=== PATIENT | female | born 1940 ===

== ENCOUNTER 2017-10-24 07:53 | Outpatient (CLI) | payer OTHER ==
[~2017-10-24 07:53] MED LIST: AVALIDE 300-251 TAB; CARDURA1 MG; CEFTIN250 MG PO; GLUCOPHAGE XR500 MG PO; LOPRESSOR HCT 11 TAB PO; NABUMETONE500 MG PO; NORVASC10 MG; PERCOCET 5/3251 TAB PO; PLAVIX75 MG; TOPROL XL200 MG; URIN D.S. TABLE1 TAB PO
== END 2017-10-24 09:00 | disposition home or self-care (01) ==
LOC: LAB 07:53
DX: I10 Essential (primary) hypertension (principal); E11.9 Type 2 diabetes mellitus without complications; E03.9 Hypothyroidism, unspecified; E78.2 Mixed hyperlipidemia

== ENCOUNTER 2018-01-11 00:41 | Emergency (ER) | payer OTHER ==
[~2018-01-11] VITALS: Ht 160 cm; Wt 73.9 kg
[2018-01-11] MEDS ORDERED: DOLOGESIC 500-1 EACH PO (08:31)
== END 2018-01-11 08:37 | disposition home or self-care (01) ==
LOC: ER 00:41
DX: I10 Essential (primary) hypertension (principal); M54.2 Cervicalgia; R51 Headache

== ENCOUNTER 2018-02-02 08:54 | Outpatient (CLI) | payer OTHER ==
[~2018-02-02 08:54] MED LIST changes: +DOLOGESIC 500-1 EACH PO
== END 2018-02-02 09:04 | disposition home or self-care (01) ==
LOC: LAB 08:54
DX: I10 Essential (primary) hypertension (principal); E11.9 Type 2 diabetes mellitus without complications; E03.8 Other specified hypothyroidism; E78.2 Mixed hyperlipidemia

== ENCOUNTER 2018-04-24 23:41 | Emergency (ER) | payer OTHER ==
[~2018-04-24] VITALS: Ht 162.6 cm; Wt 73.9 kg
== END 2018-04-25 08:32 ==
LOC: ER 23:41
DX: I16.0 Hypertensive urgency (principal); I10 Essential (primary) hypertension

== ENCOUNTER 2019-02-03 13:28 | Emergency (ER) | payer OTHER ==
[~2019-02-03] VITALS: Ht 160 cm; Wt 71.2 kg
== END 2019-02-03 18:17 | disposition home or self-care (01) ==
LOC: ER 13:28
DX: M54.41 Lumbago with sciatica, right side (principal)

== ENCOUNTER 2021-03-02 06:43 | Outpatient (CLI) | payer OTHER | END 2021-03-02 06:56 | disposition home or self-care (01) | LOC: SONOGRAMA 06:43 | PROVIDERS: ATTEND Internal Medicine Gastroenterology | DX: Q61.02 Congenital multiple renal cysts (principal); R10.84 Generalized abdominal pain ==

== ENCOUNTER 2021-04-17 08:16 | Emergency (ER) | payer OTHER ==
[~2021-04-17] VITALS: Ht 162.6 cm; Wt 64.0 kg
[2021-04-17] MEDS ORDERED: GLUMETZA1000 MG PO (08:36)
[2021-04-17] MEDS ORDERED: BENTYL10 MG/1 ML IM (08:36)
[2021-04-17] MEDS ORDERED: ZOLOFT25 MG PO (08:36)
[2021-04-17] MEDS ORDERED: PEPCID AC20 MG PO (11:45)
== END 2021-04-17 12:05 | disposition home or self-care (01) ==
LOC: ER 08:16
DX: R10.13 Epigastric pain (principal)

== ENCOUNTER 2021-06-12 11:30 | Outpatient (CLI) | payer OTHER ==
[~2021-06-12 11:30] MED LIST changes: +BENTYL10 MG/1 ML IM; +GLUMETZA1000 MG PO; +PEPCID AC20 MG PO; +ZOLOFT25 MG PO
== END 2021-06-12 12:00 | disposition home or self-care (01) ==
LOC: PPH VACUNA 11:30
PROVIDERS: ATTEND Emergency Medicine Pediatric Emergency Medicine
DX: Z23 Encounter for immunization (principal)

== ENCOUNTER 2022-01-05 06:43 | Outpatient (CLI) | payer OTHER | END 2022-01-05 06:53 | disposition home or self-care (01) | LOC: TOM 06:43 | PROVIDERS: ATTEND Internal Medicine Cardiovascular Disease | DX: R51.9 Headache, unspecified (principal); R41.2 Retrograde amnesia ==

== ENCOUNTER 2024-04-03 09:03 | Outpatient (CLI) | payer OTHER | END 2024-04-03 09:10 | disposition home or self-care (01) | LOC: RAD 09:03 | PROVIDERS: ATTEND Internal Medicine Cardiovascular Disease | DX: J44.9 Chronic obstructive pulmonary disease, unspecified (principal); M46.47 Discitis, unspecified, lumbosacral region; M19.90 Unspecified osteoarthritis, unspecified site ==

== ENCOUNTER 2024-08-06 10:55 | Outpatient (CLI) | payer OTHER | END 2024-08-06 10:58 | disposition home or self-care (01) | LOC: RAD 10:55 | PROVIDERS: ATTEND Internal Medicine Cardiovascular Disease | DX: M19.90 Unspecified osteoarthritis, unspecified site (principal); R51.9 Headache, unspecified; R07.9 Chest pain, unspecified ==